=== PATIENT | female | born 1980 | race Caucasian/White ===

== ENCOUNTER 2016-11-08 16:05 | Emergency (ER) | payer OTHER ==
[~2016-11-08] VITALS: Ht 175.3 cm; Wt 202.5 kg
[~2016-11-08 16:05] MED LIST: ALLEGRA ALLERG180 MG PO; DAILY VALUE1 EACH PO; FISH OIL300 MG PO; FLONASE16 G1 BOTH NARES; LISINOPRIL10 MG PO; LISINOPRIL5 MG PO; PRISTIQ100 MG PO; ROPINIROLE HCL2 MG PO; SINGULAIR10 MG PO
[2016-11-08 17:52] LABS: HEMATOCRIT 41.1 % (36.0-46.0); MCH 28.3 PG (29.0-34.0); MCHC 32.1 G/DL (30.0-36.0); MCV 88.2 FL (83-99); MEAN PLAT.VOLUME 10.8 uM^3 (9.5-12.4); PLATELET COUNT 362 K/uL (156-360); RBC DIS.WIDTH-CV 12.6 % (11.8-14.6); RBC DIS.WIDTH-SD 40.4 % (39-53); RED BLOOD COUNT 4.66 M/uL (3.80-5.20); WHITE BLOOD COUNT 12.5 K/uL (4.1-10.2)
[2016-11-08 18:01] LABS: CHLORIDE 104 mEq/L (99-109); POTASSIUM 4.8 mEq/L (3.7-5.4); SODIUM 139 mEq/L (136-147)
[2016-11-08 18:02] LABS: GLUCOSE 78 mg/dL (70-99)
[2016-11-08 18:04] LABS: ANION GAP 8 MEQ/L (2-14)
[2016-11-08 18:06] LABS: GFR ESTIMATE (CALCULATED) > 59 mL/min/
[2016-11-08 18:07] LABS: UREA NITROGEN (BUN) 14 mg/dL (9-23)
[2016-11-08 18:29] LABS: TROP-I INTERPRETATION NEGATIVE; TROPONIN-I < 0.01 ng/mL (0.0-0.30)
[2016-11-08 18:54] LABS: D-DIMER ELISA 0.28 mg/L FEU (< 0.57)
[2016-11-08 20:40] LABS: TROP-I INTERPRETATION NEGATIVE; TROPONIN-I < 0.01 ng/mL (0.0-0.30)
[2016-11-08] MEDS ORDERED: LO-DOSE ASPIRIN81 M2 PO (20:53)
[2016-11-08] MEDS ORDERED: MOTRIN800 MG PO (20:53)
[2016-11-08 21:13] VITALS: BP 115/69
== END 2016-11-08 21:16 | disposition home or self-care (01) ==
LOC: EME 16:05
PROVIDERS: Physician Assistant
DX: R07.9 Chest pain, unspecified (principal); Z56.89 Other problems related to employment; M54.9 Dorsalgia, unspecified; R06.00 Dyspnea, unspecified; R11.0 Nausea; I10 Essential (primary) hypertension; J45.909 Unspecified asthma, uncomplicated
CPT/HCPCS: 71020; 80048; 84484; 85027; 85379; 93005; 99281; 99284; J1885; J3010

== ENCOUNTER 2018-01-03 15:24 | Observation (INO) | payer OTHER ==
[~2018-01-03] VITALS: Ht 177.8 cm; Wt 194.2 kg
[~2018-01-03 15:24] MED LIST changes: +LO-DOSE ASPIRIN81 M2 PO; +MOTRIN800 MG PO; +REQUIP4 MG PO; -ROPINIROLE HCL2 MG PO
[2018-01-03 16:07] LABS: APPEARANCE CLEAR ((CLEAR)); BILIRUBIN NEGATIVE; BLOOD NEGATIVE; COLOR YELLOW ((YELLOW)); GLUCOSE (STRIP) NEGATIVE; KETONES NEGATIVE; LEUKOCYTES NEGATIVE; NITRITE NEGATIVE; PROTEIN (STRIP) NEGATIVE; SPECIFIC GRAVITY 1.057 (1.000-1.030); UCUL ADDED? NO; UROBILINOGEN 0.2 MG/DL (0.2-1.0)
[2018-01-03 16:08] LABS: BASOPHIL (%) 0.4 % (0-1); EOSINOPHIL (%) 1.8 % (0-5); EOSINOPHIL COUNT 0.2 K/uL (0-0.3); HEMATOCRIT 40.1 % (36.0-46.0); HEMOGLOBIN 13.2 G/DL (11.9-15.5); IMMATURE GRANULOCYTE (%) 0.4 % (0.0-0.7); LYMPHOCYTE (%) 25.1 % (15-42); LYMPHOCYTE COUNT 2.8 K/uL (1.0-2.8); MCH 28.6 PG (29.0-34.0); MCHC 32.9 G/DL (30.0-36.0); MONOCYTE (%) 7.7 % (3-12); MONOCYTE COUNT 0.9 K/uL (0-0.8); NEUTROPHIL (%) 64.6 % (45-76); NEUTROPHIL COUNT 7.3 K/uL (1.8-6.4); PLATELET COUNT 340 K/uL (156-360); RBC DIS.WIDTH-CV 12.5 % (11.8-14.6); RBC DIS.WIDTH-SD 39.3 % (39-53); RED BLOOD COUNT 4.61 M/uL (3.80-5.20); WHITE BLOOD COUNT 11.2 K/uL (4.1-10.2)
[2018-01-03 16:16] LABS: CHLORIDE 104 mEq/L (99-109); POTASSIUM 4.4 mEq/L (3.7-5.4); SODIUM 139 mEq/L (136-147)
[2018-01-03 16:18] LABS: GLUCOSE 86 mg/dL (70-99); TOTAL PROTEIN 7.4 g/dL (6.4-8.3)
[2018-01-03 16:20] LABS: TOTAL BILIRUBIN 0.6 mg/dL (0.0-1.0)
[2018-01-03 16:21] LABS: ALKALINE PHOSPHATASE 80 IU/L (3-129)
[2018-01-03 16:22] LABS: CREATININE 0.8 mg/dL (0.6-1.3); GFR ESTIMATE (CALCULATED) > 59 mL/min/
[2018-01-03 16:23] LABS: AST (GOT) 21 IU/L (2-34); UREA NITROGEN (BUN) 12 mg/dL (9-23)
[2018-01-03 16:25] LABS: ALT (GPT) 32 IU/L (3-49)
[2018-01-03 16:30] LABS: QUANTITATIVE HCG < 4.0 MIU/ML
[2018-01-03] MEDS ORDERED: LOW DOSE ASPIRI81 M1 PO (16:44)
[2018-01-03] MEDS ORDERED: ADVIL200 MG PO (16:46)
[2018-01-03] MEDS ORDERED: IMITREX25 MG PO (16:49)
[2018-01-03] MEDS ORDERED: MAGNESIUM400 M1 PO (16:50)
[2018-01-03] MEDS ORDERED: POTASSIUM GLUCO99 M1 PO (16:53)
[2018-01-03] MEDS ORDERED: NAMENDA10 MG PO (16:54)
[2018-01-03 20:14] VITALS: BP 145/88
[2018-01-03] MEDS ORDERED: REQUIP0.5 MG PO (22:13)
[2018-01-04 01:40] VITALS: BP 131/80
[2018-01-04 04:03] VITALS: BP 138/76
[2018-01-04 06:44] LABS: HEMATOCRIT 38.7 % (36.0-46.0); HEMOGLOBIN 12.7 G/DL (11.9-15.5); MCH 28.6 PG (29.0-34.0); MCHC 32.8 G/DL (30.0-36.0); MCV 87.2 FL (83-99); PLATELET COUNT 316 K/uL (156-360); RBC DIS.WIDTH-CV 12.4 % (11.8-14.6); RBC DIS.WIDTH-SD 39.5 % (39-53); RED BLOOD COUNT 4.44 M/uL (3.80-5.20); WHITE BLOOD COUNT 13.5 K/uL (4.1-10.2)
[2018-01-04 07:06] LABS: CHLORIDE 103 MEQ/L (99-109); CREATININE 0.8 MG/DL (0.6-1.3); GFR ESTIMATE (CALCULATED) > 59 mL/min/; POTASSIUM 4.8 MEQ/L (3.7-5.4); SODIUM 137 MEQ/L (136-147); UREA NITROGEN (BUN) 13 mg/dL (9-23)
[2018-01-04 07:07] LABS: GLUCOSE 155 mg/dL (70-99)
[2018-01-04 08:19] VITALS: BP 122/61
[2018-01-04] MEDS ORDERED: PERCOCET 5/31 TABLET PO (11:09)
== END 2018-01-04 13:25 | disposition home or self-care (01) ==
LOC: EME 15:24 → EDOF 18:34 → 2EASTP 18:34 → EDOF 18:34 → ENRESERV 18:45 → 2EASTP 20:00
PROVIDERS: Emergency Medicine; Surgery
PROC: 0DTJ4ZZ Resection of Appendix, Percutaneous Endoscopic Approach (ICD-10-PCS; principal; 2018-01-03)
DX: K35.80 Unspecified acute appendicitis (principal); I10 Essential (primary) hypertension; E66.01 Morbid (severe) obesity due to excess calories; Z68.44 Body mass index [BMI] 60.0-69.9, adult; F32.9 Major depressive disorder, single episode, unspecified; Z90.710 Acquired absence of both cervix and uterus; Z79.82 Long term (current) use of aspirin; Z88.0 Allergy status to penicillin; Z88.7 Allergy status to serum and vaccine; Z88.8 Allergy status to other drugs, medicaments and biological substances; Z91.030 Bee allergy status; Z91.018 Allergy to other foods
CPT/HCPCS: 80048; 80053; 81003; 84702; 85025; 85027; 86850; 86900; 86901; 88304; 93005; 99281; 99285; G0378; J0131; J0330; J0744; J1100; J1170; J1650; J1885; J2405; J2710; J3010; J7120; J7643; S0020; S0030